=== PATIENT | male | born 2000 | race Caucasian/White ===

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

== ENCOUNTER 2022-05-21 16:31 | Emergency (ER) | payer OTHER, SELFPAY ==
[2022-05-21 16:35] VITALS: BP 152/83; PULSE 65; RESP 17; TEMP 37.3; O2SAT 97
--- NOTE | 2022-05-21 16:39 | ED_ITS ---
HPI - Fever General Chief Complaint: Fever Stated Complaint: covid positive, fever Time Seen by Provider: 05/21/22 16:34 Related Data Home Medications Medication Instructions Recorded Confirmed No Home Medications 02/24/20 02/24/20 Allergies Allergy/AdvReac Type Severity Reaction Status Date / Time No Known Allergies Allergy Verified 05/26/20 12:30 [facility] Social History Social History (System 05/26/20 @ 12:30 by Rozina Liu) Smoking status: Current every day smoker Gender identity (if verbalized by the patient): Male Discharge Plan Discharge Prescriptions: No Action No Home Medications Follow-up/Referrals: Santos,MD Eyad [Primary Care Provider] -
--- NOTE | 2022-05-21 16:51 | ED.FEVER ---
HPI - Fever General Chief Complaint: Fever <FELIPE Gaffney Last Filed: 05/21/22 17:05> Stated Complaint: covid positive, fever <FELIPE Gaffney Last Filed: 05/21/22 17:05> Time Seen by Provider: 05/21/22 16:34 <FELIPE Gaffney Last Filed: 05/21/22 17:05> History of Present Illness HPI Narrative: Patient is a 22-year-old male here for evaluation of fever, body aches, sinus congestion, cough for the past 3 days. He tested positive for COVID 2 days ago. Has been taking ibuprofen and Tylenol in addition to increasing his fluid intake. States he came to the emergency department because his mother was concerned over fever. He is unvaccinated against COVID. Denies chest pain, shortness of breath. <FELIPE Gaffney Last Filed: 05/21/22 17:05> Related Data Home Medications: Home Medications Medication Instructions Recorded Confirmed No Home Medications 02/24/20 02/24/20 <FELIPE Gaffney Last Filed: 05/21/22 17:05> Allergies/Adverse Reactions: Allergies Allergy/AdvReac Type Severity Reaction Status Date / Time No Known Allergies Allergy Verified 05/21/22 16:41 <FELIPE Gaffney Last Filed: 05/21/22 17:05> Review of Systems Review of Systems: Gen: Reports fevers and chills Eyes: Denies eye pain or visual change ENT: Reports congestion and cough Respiratory: Denies shortness of breath or cough CV: Denies chest pain or palpitations GI: Denies abdominal pain nausea, emesis or diarrhea denies burning, urgency, frequency or hematuria Musculoskeletal: Denies back pain or muscle pain Neuro: Denies numbness, tingling, weakness or focal weakness Skin: Denies rash Except as documented, all other systems reviewed and negative <FELIPE Gaffney Last Filed: 05/21/22 17:05> [facility] Social History Social History: Social History (System 05/26/20 @ 12:30 by Rozina Sena Smoking status: Current every day smoker Gender identity (if verbalized by the patient): Male <Cristina Ivey PA-C - Last Filed: 05/21/22 17:05> Exam Narrative: APPEARANCE: Well appearing, no pain in distress, well-nourished. Head: Normocephalic and atraumatic. EYES: PERRLA/EOMI, conjunctivae clear NOSE: No nasal drainage EARS: External ear normal in appearance THROAT: Oropharynx is clear. Mucous membranes are moist. NECK: Supple. No adenopathy, no masses. RESPIRATORY: Airway patent, respirations nonlabored. Clear to auscultation bilaterally, no rales, rhonchi, wheezing. CARDIOVASCULAR: Regular rate and rhythm without murmurs, rubs, or gallops. ABDOMINAL: Normoactive bowel sounds. Soft, nontender, nondistended. No rebound tenderness or guarding. MUSCULOSKELETAL: Extremities are warm and well-perfused. Moves all extremities well. No edema. NEURO: Normal speech. No focal neurologic deficits. SKIN: Skin is warm and dry. No rashes. PSYCHIATRIC: Normal affect/mood. <Cristina Ivey PA-C - Last Filed: 05/21/22 17:05> Course [employer]/PA Physician Supervision I personally evaluated the patient spent time with him and discussed alternating tylenol, motrin, cool baths vs his hot showers when having chills and not covering up which he says he was doing and will continue to spike fevers b/c normal part of covid, otherwise has work note for 5 day quarantine already and good wiht plan and agree with PA assesment <Thais Lee MD - Last Filed: 05/21/22 17:30> Vital Signs Vital signs: Vital Signs Temperature 37.3 C 05/21/22 16:35 Pulse Rate 65 05/21/22 16:35 Respiratory Rate 17 05/21/22 16:35 Blood Pressure 152/83 H 05/21/22 16:35 Pulse Oximetry 97 05/21/22 16:35 Oxygen Delivery Room Air 05/21/22 16:35 Temperature 37.3 C 05/21/22 16:35 Pulse Rate 65 05/21/22 16:35 Respiratory Rate 17 05/21/22 16:35 Blood Pressure 152/83 H 05/21/22 16:35 Pulse Oximetry 97 0
== END 2022-05-21 17:24 | disposition home or self-care (01) ==
PROVIDERS: Emergency Provider Emergency Medicine; PCP Internal Medicine
DX: U07.1 COVID-19 (principal); Z28.310 Unvaccinated for COVID-19; F17.200 Nicotine dependence, unspecified, uncomplicated
CPT/HCPCS: 99281

== ENCOUNTER 2022-05-23 09:40 | Emergency (ER) | payer OTHER, SELFPAY ==
[2022-05-23 09:52] VITALS: BP 130/83; PULSE 75; RESP 16; TEMP 36.8; O2SAT 100
--- NOTE | 2022-05-23 09:53 | ED.URI ---
HPI - URI/Sore Throat General Chief Complaint: Upper Respiratory Infection Stated Complaint: wants strep test, covid positive Source: patient and RN notes reviewed Mode of arrival: ambulatory Limitations: no limitations History of Present Illness HPI Narrative: 22-year-old male positive for COVID presented for complaint of sore throat over the last 2 days. Endorses his home COVID test was positive 3 days ago at the onset of his symptoms. He has been taking [id number] medicines for symptoms. He denies nausea, vomiting, diarrhea, shortness of breath, fevers or chills at this time. MD elicited complaint: cough Related Data Home Medications Medication Instructions Recorded Confirmed No Home Medications 02/24/20 02/24/20 Allergies Allergy/AdvReac Type Severity Reaction Status Date / Time No Known Allergies Allergy Verified 05/21/22 16:41 Review of Systems Review of Systems: CONSTITUTIONAL: denies malaise, chills, sweats, fever EYES: Denies visual changes, redness, or discharge ENT: Reports rhinorrhea, congestion, sore throat CARDIOVASCULAR: Denies chest pain, palpitations, edema RESPIRATORY: Reports cough, post nasal drainage. Denies dyspnea GASTROINTESTINAL: Denies abdominal pain, nausea, vomiting, diarrhea SKIN: Denies rash or itching MUSCULOSKELETAL: denies myalgia NEUROLOGIC: Denies headache PMFSH Social History Social History Smoking status: Current every day smoker Gender identity (if verbalized by the patient): Male Exam Narrative: GENERAL: well-appearing EYES: conjunctivae clear ENT: Mucous membranes moist. TM pearly riojas with normal light reflex bilaterally; no tragal tenderness. Oropharynx erythematous without lesions or exudate, no drooling, no hoarseness, no trismus, uvula midline. No tripod positioning, muffled voice, soft palate or pharyngeal wall bulging NECK: Supple. No lymphadenopathy CHEST: Clear to auscultation, breath sounds equal. HEART: Regular rate and rhythm. No murmur heard. SKIN: Warm, dry, no rash. NEURO: Alert and oriented x3. Course Course Emergency Course: Patient is aware of diagnosis, understands and agrees to treatment plan. Anticipatory guidance given. Patient agrees to follow-up as directed and is aware of reasons to seek care at the emergency department. Portions of this record may have been created with voice recognition software Level of Care: Express Care Visit Vital Signs Vital signs: Vital Signs Temperature 98.2 F 05/23/22 09:52 Pulse Rate 75 05/23/22 09:52 Respiratory Rate 16 05/23/22 09:52 Blood Pressure 130/83 05/23/22 09:52 Pulse Oximetry 100 05/23/22 09:52 Temperature 98.2 F 05/23/22 09:52 Pulse Rate 75 05/23/22 09:52 Respiratory Rate 16 05/23/22 09:52 Blood Pressure 130/83 05/23/22 09:52 Pulse Oximetry 100 05/23/22 09:52 reviewed MDM - URI/Sore Throat MDM Narrative Medical decision making narrative: Results of negative strep test reviewed with patient and mother. He is advised on supportive treatments. Also reminded to remain quarantined for his known positive status. is appropriate for outpatient treatment follow-up. Differential Diagnosis Differential diagnosis: Likely upper respiratory infection, sinusitis and viral infection Discharge Plan Discharge Clinical Impression: Pharyngitis Patient Disposition: Home, Self-Care Condition: Stable Instructions: Antibiotic Form, COVID-19 (Coronavirus Disease 2019) (ED) Additional Instructions: Rapid strep swab was negative today You will be notified in a few days if the culture comes back positive for strep, and appropriate antibiotics will be called in at that time. if symptoms are due to a viral illness, it is not treated with antibiotics. Viral symptoms can be present for up to 10-14 days. Rest, stay hydrated. Recommend Flonase spray and Zyrtec Cough syrup may cause zainab
== END 2022-05-23 10:13 | disposition home or self-care (01) ==
PROVIDERS: Emergency Provider Nurse Practitioner Family
DX: J02.9 Acute pharyngitis, unspecified (principal); F17.290 Nicotine dependence, other tobacco product, uncomplicated
CPT/HCPCS: 87081; 87880; 99213; G0463

== ENCOUNTER 2022-05-23 10:54 | Emergency (ER) | payer OTHER, SELFPAY ==
[2022-05-23 11:17] VITALS: BP 137/81; PULSE 78; RESP 18; TEMP 36.7; O2SAT 99
--- NOTE | 2022-05-23 11:23 | ED.URI ---
HPI - URI/Sore Throat General Chief Complaint: Upper Respiratory Infection Stated Complaint: Sore Throat Time Seen by Provider: 05/23/22 11:23 History of Present Illness HPI Narrative: Catalino Bender is a 22 yo male with no PMH who predsents tpo prior [facility] after just leaving [facility]. He tested positive for covid at the emergency room 2 days ago and had a home test for for COVID that was +3 days ago; he is here for the same complaint of sore throat after being seen in [place] less than an hour before.Mother who is here with patient felt that provider did not convey info/answer questions well - is here for a second opinion on possible strep and covid Related Data Home Medications Medication Instructions Recorded Confirmed No Home Medications 02/24/20 05/23/22 Allergies Allergy/AdvReac Type Severity Reaction Status Date / Time No Known Allergies Allergy Verified 05/23/22 11:38 Review of Systems Review of Systems: CONSTITUTIONAL: Denies fever, chills, sweats. EYES: Denies visual changes, redness, discharge. ENT: Denies rhinorrhea, has congestion, has sore throat, otalgia. Is COVID-positive and tested 3 days ago at home 2 days ago at ER CARDIOVASCULAR: Denies chest pain, palpitations, edema. RESPIRATORY: Denies dyspnea, wheezing, cough GASTROINTESTINAL: Denies abdominal pain, nausea, vomiting, diarrhea. GENITOURINARY: Denies dysuria, hematuria, abnormal discharge SKIN: Denies rash or itching. NEUROLOGIC: Denies numbness, or focal weakness. PSYCHIATRIC: Denies anxiety or depression. PMFSH Social History Social History Smoking status: Current every day smoker Gender identity (if verbalized by the patient): Male Comments At time of signature, I agree with nursing past medical, surgical, social and family history. There is no relevant family history pertinent to the presenting complaint. Exam Narrative: GENERAL: This is a well-nourished, well-developed patient, in mild distress. HEAD: normocephalic, atraumatic. EYES: Sclera clear/white. Vision is grossly intact. EARS: External ears normal, Hearing grossly intact. NOSE: External nose normal without nasal discharge, nares without redness, no rhinorrhea. THROAT: Mucous membranes moist, NECK: Neck supple, non-tender CARDIOVASCULAR: Regular rate and rhythm without murmurs, gallops, or rubs. RESPIRATORY: Clear to auscultation. Breath sounds equal bilaterally. No wheezes, rales, or rhonchi. GASTROINTESTINAL: not done SKIN: warm, intact with no suspicious lesions or rash, good texture and turgor. NEURO: awake, alert, and oriented to person, place and time. There were no obvious focal neurologic abnormalities. Steady gait EXTREMITIES: Normal range of motion. BACK: Nontender without deformity Course Course Emergency Course: Patient tested positive for COVID 3 days ago with a home test 2 days ago at the emergency room; was seen at [place] within an hour ago for sore throat and is here for the same complaint Test negative on a rapid strep test at [place] and test will send off for culture no further testing will be done here.Reiterated that covid has many symptoms; can be ore throat, sinus symptoms, GI symtoms, body aches, fatigue. it would be unusual to be coinfected with strep but specimen from [place] will be cultured. Symptom treatment is otc meds , rest, isolation.Pt is unvaccinated but lungs are clear presently. Discussed pulse ox which is usually used with plder pts or with pts with comorbidities Reminded patient of his isolation requirements of 5 days with 5 days with a mask after that; to treat his symptoms with [id number] medication which include Flonase and Zyrtec and may take Tylenol or ibuprofen for pain or fever Level of Care: Express Care Visit Vital Signs Vital signs: Vital Signs Temperature 98.0 F 05/23/22 11:17 Pulse Rate 78 05/23/22 11:1
== END 2022-05-23 11:50 | disposition home or self-care (01) ==
PROVIDERS: Emergency Provider Nurse Practitioner; PCP Internal Medicine
DX: U07.1 COVID-19 (principal); J02.9 Acute pharyngitis, unspecified; F17.200 Nicotine dependence, unspecified, uncomplicated
CPT/HCPCS: 99213; G0463

== ENCOUNTER 2023-10-21 09:16 | Emergency (ER) | payer OTHER, SELFPAY ==
[2023-10-21 09:26] VITALS: BP 148/78; PULSE 66; RESP 16; TEMP 36.4; O2SAT 100
--- NOTE | 2023-10-21 09:50 | ED.URI ---
HPI - URI/Sore Throat General Chief Complaint: Upper Respiratory Infection Stated Complaint: Congestion,Cough,Sore Throat Time Seen by Provider: 10/21/23 09:42 Source: patient and RN notes reviewed Mode of arrival: ambulatory Limitations: no limitations History of Present Illness HPI Narrative: The patient presents today complaining of cough and rhinorrhea x2 days. Denies any additional symptoms. He took 1 dose of ibuprofen without relief. Denies known sick contacts. Related Data Home Medications Medication Instructions Recorded Confirmed No Home Medications 02/24/20 10/21/23 Allergies Allergy/AdvReac Type Severity Reaction Status Date / Time No Known Allergies Allergy Verified 10/21/23 09:21 Review of Systems Review of Systems: CONSTITUTIONAL: Denies body aches, fever, chills, or sweats. EYES: Denies visual changes, redness, or discharge. ENT: Denies congestion, sore throat, or otalgia.+ rhinorrhea CARDIOVASCULAR: Denies chest pain, palpitations, or edema. RESPIRATORY: Denies dyspnea.+ cough GASTROINTESTINAL: Denies abdominal pain, nausea, vomiting, or diarrhea. GENITOURINARY: Denies dysuria or hematuria. SKIN: Denies rash, itching, or wounds. MUSCULOSKELETAL: Denies back pain, joint pain, or myalgia. NEUROLOGIC: Denies headache, numbness, tingling, or weakness. PSYCH: Denies depression or anxiety. [facility] Social History Social History Smoking status: Current every day smoker Gender identity (if verbalized by the patient): Male Comments At time of signature, I have reviewed and agree with nursing past medical, surgical, social and family history unless otherwise noted. Please see nursing chart for further information. There is no relevant family history pertinent to the presenting complaint Exam Narrative: GENERAL: Well-appearing, well-nourished, and in no acute distress. HEAD: Normocephalic, atraumatic. EYES: EOMI. No redness or drainage. Conjunctivae normal. ENT: Mucous membranes pink and moist. Nares clear. No rhinorrhea. TMs normal bilaterally. Throat normal. Uvula midline. NECK: Normal AROM. Supple. No lymphadenopathy. CHEST: No respiratory distress. Clear to auscultation. HEART: Regular rate and rhythm. No murmur appreciated. EXTREMITIES: Normal range of motion. No edema. SKIN: Warm, dry, no rash. Capillary refill normal. Normal skin turgor. NEURO: No focal deficits. Alert and oriented x3. Gait steady. PSYCH: Normal affect. No signs of depression or anxiety. Course Course Level of Care: Express Care Visit Vital Signs Vital signs: Vital Signs Temperature 97.6 F 10/21/23 09:26 Pulse Rate 66 10/21/23 09:26 Respiratory Rate 16 10/21/23 09:26 Blood Pressure 148/78 H 10/21/23 09:26 Pulse Oximetry 100 10/21/23 09:26 Oxygen Delivery Room Air 10/21/23 09:26 Temperature 97.6 F 10/21/23 09:26 Pulse Rate 66 10/21/23 09:26 Respiratory Rate 16 10/21/23 09:26 Blood Pressure 148/78 H 10/21/23 09:26 Pulse Oximetry 100 10/21/23 09:26 Oxygen Delivery Room Air 10/21/23 09:26 Reviewed MDM - URI/Sore Throat MDM Narrative Medical decision making narrative: Influenza negative. Patient's symptoms are likely due to a viral illness. Discussed [id number] treatment and when to go to the ER. No prescription medications indicated at this time. Anticipatory guidance given. Differential Diagnosis Differential diagnosis: Likely upper respiratory infection, sinusitis, viral infection, bronchitis and influenza Lab Data Attestation: I reviewed the patient's lab results. Labs: Influenza A Screen Negative Reference Range: Negative Influenza B Screen Negative Reference Range: Negative Critical Care Time Critical Care Time Critical Care Time: No D
== END 2023-10-21 09:54 | disposition home or self-care (01) ==
PROVIDERS: Emergency Provider Nurse Practitioner
DX: J06.9 Acute upper respiratory infection, unspecified (principal); F17.200 Nicotine dependence, unspecified, uncomplicated
CPT/HCPCS: 87804; 99213; G0463